=== PATIENT | male | born 1995 | race Caucasian/White ===

== ENCOUNTER 2021-06-17 16:33 | Emergency (ER) | payer SELFPAY ==
[2021-06-17 16:48] VITALS: BMI 28.3
[2021-06-17 18:15] VITALS: BP 125/78; PULSE 100; TEMP 99.2
== END 2021-06-17 19:20 | disposition home or self-care (01) ==
LOC: FER 16:33
DX: F12.929 Cannabis use, unspecified with intoxication, unspecified (principal)
CPT/HCPCS: 93005; 99283-25